=== PATIENT | female | born 1955 | race Asian ===

== ENCOUNTER 2023-10-29 20:20 | Emergency (ER) | payer OTHER, MEDICAID ==
[~2023-10-29] VITALS: Ht 167.6 cm; Wt 59.0 kg
[2023-10-29 20:52] VITALS: BP_SYST 164; PULSE 94; RESP 18; TEMP 98.3; O2SAT 97
[2023-10-29 21:27] LABS: BASOPHILS # (AUTO) 0.1 K/uL (0.0-0.2); BASOPHILS % (AUTO) 0.8 % (0.0-2.0); EOSINOPHILS % (AUTO) 0.2 % (0.0-4.0); HEMATOCRIT 44.8 % (36-48); HEMOGLOBIN 14.8 g/dL (12.0-16.0); LYMPHOCYTES # (AUTO) 1.5 K/uL (1.0-5.5); LYMPHOCYTES % (AUTO) 19.4 % (20.5-51.5); MEAN CORPUSCULAR HEMOGLOBIN 29 pg (27-31); MEAN CORPUSCULAR HGB CONC 33 % (32-36); MEAN CORPUSCULAR VOLUME 87 fL (79.0-98.0); MONOCYTES # (AUTO) 0.6 K/uL (0.0-1.0); MONOCYTES % (AUTO) 8.1 % (1.7-9.3); NEUTROPHILS # (AUTO) 5.6 K/uL (1.8-7.7); NEUTROPHILS % (AUTO) 71.5 % (40.0-70.0); PLATELET COUNT (AUTO) 175 K/uL (130-430); RED BLOOD CELL COUNT(AUTO) 5.18 MIL/uL (4.2-6.2); RED CELL DISTRIBUTION WIDTH 13.3 % (9.0-15.0); WHITE BLOOD COUNT (AUTO) 7.8 K/uL (4.8-10.8)
[2023-10-29 21:40] LABS: CALCIUM 9.8 mg/dL (8.4-11.0); CREATININE 0.9 mg/dL (0.55-1.30)
[2023-10-29 21:45] LABS: BILIRUBIN,DIRECT 0.1 mg/dL (0.0-0.3); TOTAL BILIRUBIN 0.3 mg/dL (0.0-1.0); TOTAL PROTEIN, SERUM 8.3 g/dL (6.4-8.3)
[2023-10-29 22:04] LABS: INR 4.6 (0.8-1.2); PROTHROMBIN TIME 44.5 SECS (9.5-12.5)
[2023-10-29 22:22] LABS: CKMB RELATIVE INDEX 1.9 (0.0-2.9)
== END 2023-10-30 02:08 | disposition left against medical advice (07) ==
LOC: SED 20:20
DX: S09.90XA Unspecified injury of head, initial encounter (principal); R79.1 Abnormal coagulation profile; W18.39XA Other fall on same level, initial encounter; Y93.89 Activity, other specified; Y92.89 Other specified places as the place of occurrence of the external cause; Y99.8 Other external cause status
CPT/HCPCS: 36415; 70450-TC; 70486-TC; 72125-TC; 76376; 80048; 80076; 82550; 82553; 85025; 85610-TC; 85730-TC; 99284